=== PATIENT | female | born 1955 | race Caucasian/White ===

== ENCOUNTER 2021-02-27 09:11 | Outpatient (REF) | payer OTHER, SELFPAY ==
--- NOTE | ~2021-02-27 | CT_ITS ---
EXAMINATION: CT ABDOMEN WITHOUT CONTRAST CLINICAL INFORMATION: S30.1XXA - Contusion of abdominal wall, initial encounter COMPARISON: Radiographs chest and right ribs 02/27/2021 TECHNIQUE: Contiguous axial thin section helical images of the abdomen were performed without contrast. The data set was reformatted in the coronal and sagittal planes and reviewed on an independent workstation. This CT examination was performed using dose optimization techniques as appropriate, variously including the following: *Automated exposure control *Adjustment of mA and/or kV according to patient size (this includes techniques or standardized protocols for targeted exams where dose is matched to indication/reason for exam; i.e. extremities or head) *Use of iterative reconstruction technique DLP: 249 mGy-cm FINDINGS: LUNG BASES: Lung bases are clear. No airspace consolidation or effusion. Heart size normal. No pericardial effusion. LIVER, GALLBLADDER, AND BILIARY TREE: Liver is normal in size and smooth in contour and uniform in attenuation. No focal hepatic parenchymal lesion or intrahepatic ductal dilatation. The gallbladder is unremarkable with no evidence of radiopaque gallstones, gallbladder wall thickening, or obvious pericholecystic inflammatory changes. PANCREAS: Unremarkable. SPLEEN: Unremarkable. ADRENAL GLANDS: Unremarkable. KIDNEYS AND URETERS: The kidneys are normal in size and contour and attenuation. There is no hydronephrosis, hydroureter, or perinephric stranding. There are bilateral solitary small nonobstructing calculi upper poles, under 3 mm on left and under 2 mm on right. GASTROINTESTINAL TRACT: There is borderline small sliding hiatal hernia. There is no bowel obstruction or focal inflammatory changes in the bowel or mesentery. No ascites or fluid collection. ABDOMINAL WALL: There is a small focal subcutaneous hematoma right lateral abdomen approximately 6 cm superior to the iliac crest and measuring 2.3 x 2.4 cm x 2.0 cm. There is 65 HU attenuation. No subcutaneous emphysema. There is mild surrounding stranding in the subcutaneous space and mild thickening of the overlying skin and mild thickening of the superficial fascia deep to the hematoma. The abdominal wall musculature shows no hematoma or defect. No abdominal wall hernia. LYMPH NODES: No lymphadenopathy. VASCULAR: Unremarkable. OSSEUS STRUCTURES: No acute bony abnormality. There are multilevel degenerative disc changes lower thoracic and lumbar spine. Old right rib fractures are partially imaged, also noted on today's radiographs. CT/CT abdomen wo con IMPRESSION: 1. Right lateral abdominal wall subcutaneous hematoma measuring 2.4 cm. No intramuscular abdominal wall hematoma or abdominal wall defect. 2. No acute intra-abdominal abnormality.
--- NOTE | ~2021-02-27 | XR_ITS ---
EXAMINATION: XR RIBS, RIGHT CLINICAL INFORMATION: Contusion of unspecified bronchus wall of the thorax COMPARISON: None TECHNIQUE: 3 views of the right ribs and one view of the chest were obtained. FINDINGS: The cardiac and mediastinal contours are normal. The lungs are clear. There is no pleural effusion or pneumothorax. There are degenerative changes of the spine. There is a right shoulder replacement. There are old posterior sixth 7 and 8 rib fractures no acute rib fracture is seen. XR/XR ribs RT min 3V w CXR1V IMPRESSION: No evidence for acute disease in the chest. Old right rib fractures. No acute rib fracture is seen.
== END 2021-02-27 09:12 | disposition home or self-care (01) ==
LOC: HO.HMGCX 09:11
PROVIDERS: Visit Provider Internal Medicine
DX: S30.1XXA Contusion of abdominal wall, initial encounter (principal); S20.219A Contusion of unspecified front wall of thorax, initial encounter; X58.XXXA Exposure to other specified factors, initial encounter; Y93.9 Activity, unspecified; Y92.9 Unspecified place or not applicable; Y99.9 Unspecified external cause status
CPT/HCPCS: 71101; 74150

== ENCOUNTER 2023-09-30 12:04 | Outpatient (REF) | payer MEDICARE, SELFPAY ==
[2023-09-30 12:37] LABS: MANUAL DIFF FLAG NO
[2023-09-30 13:51] LABS: Basophils Absolute Auto 0.1 X10*3/uL (0.0-0.2); Basophils Percent Auto 0.9 % (0-2); Eosinophils Absolute Auto 0.3 X10*3/uL (0.0-0.4); Eosinophils Percent Auto 4.3 % (0-4); Hematocrit 40.7 % (37.0-47.0); Hemoglobin 14.1 g/dl (12.0-16.0); Imm Gran Abs Auto 0.01 X10*3/uL (0.00-0.03); Imm Gran Pct Auto 0.2 % (0.0-0.4); Lymphocytes Absolute Auto 2.3 X10*3/uL (1.2-4.9); Lymphocytes Percent Auto 34.7 % (20-40); Mean Corpuscular HGB Conc 34.6 g/dl (31.0-35.0); Mean Corpuscular Hemoglobin 29.7 pg (27.0-33.0); Mean Corpuscular Volume 85.7 fL (80.0-98.0); Mean Platelet Volume 10.4 fL (9.4-12.3); Monocytes Absolute Auto 0.4 X10*3/uL (0.1-1.2); Monocytes Percent Auto 5.9 % (2-11); Neutrophils Absolute Auto 3.5 x10*3/uL (2.0-8.3); Platelet Count 270 X10*3/uL (160-400); Red Blood Count 4.75 X10*6/uL (4.20-5.50); Red Cell Distribution Width 12.7 % (11.0-16.0); White Blood Count 6.5 X10*3/uL (4.8-10.8)
[2023-09-30 14:22] LABS: Anion Gap 14 (12-20); Blood Urea Nitrogen 10 mg/dL (9-16); Calcium 9.5 mg/dL (8.4-10.2); Carbon Dioxide 26 mmol/L (22-29); Chloride 106 mmol/L (96-108); Estimated Glomerular Filt Rate > 60; Glucose Random 85 mg/dL (60-115); Potassium 3.5 mmol/L (3.3-5.1); Sodium 142 mmol/L (135-145)
[2023-09-30 14:40] LABS: T4 Thyroxine 6.6 ug/dL (4.5-12.0); Thyroid Stimulating Hormone 1.74 uIU/mL (0.32-4.0)
[2023-09-30 14:45] LABS: Vitamin B12 329 pg/mL (200-900)
[2023-10-04 14:47] LABS: Vitamin D 25-OH, D2 <4 ng/mL; Vitamin D 25-OH, D3 39 ng/mL; Vitamin D 25-OH, Total 39 ng/mL (30-100)
== END 2023-09-30 12:05 | disposition home or self-care (01) ==
LOC: HO.LAB 12:04
PROVIDERS: Visit Provider Psychiatry & Neurology Neurology
DX: G31.84 Mild cognitive impairment of uncertain or unknown etiology (principal)
CPT/HCPCS: 36415; 80048; 82306; 82607; 84436; 84443; 85025

== ENCOUNTER 2023-11-03 07:46 | Outpatient (REF) | payer MEDICARE, SELFPAY ==
--- NOTE | 2023-11-03 07:49 | EEG_ITS ---
FINDINGS: Waking background activity consists of a moderate voltage 9 to 10 hertz, posterior alpha frequency that is seen symmetrically and attenuates well with eye opening, while low voltage fast frequencies predominant anteriorly. Photic stimulation and hyperventilation are without activation. No sleep stages are identified. No focal, lateralizing, or paroxysmal discharges are seen. IMPRESSION: This waking EEG is within normal limits. MD RADHA Flowers/JESS / [id number]
== END 2023-11-03 07:47 | disposition home or self-care (01) ==
LOC: HO.NEURO 07:46
PROVIDERS: PCP Internal Medicine; Visit Provider Psychiatry & Neurology Neurology
DX: G31.84 Mild cognitive impairment of uncertain or unknown etiology (principal)
CPT/HCPCS: 95816

== ENCOUNTER 2023-11-26 12:39 | Outpatient (REF) | payer MEDICARE, SELFPAY ==
--- NOTE | ~2023-11-26 | MR_ITS ---
EXAMINATION: MR BRAIN WITHOUT CONTRAST CLINICAL INFORMATION: Mild cognitive impairment. COMPARISON: None available. TECHNIQUE: MRI of the brain was obtained using routine sequences without contrast. FINDINGS: No focal restricted diffusion is demonstrated to suggest acute or subacute cerebral ischemia. No evidence of acute or chronic hemorrhagic products on heme-sensitive imaging. Small region chronic encephalomalacia in the left superior frontal gyrus. Scattered periventricular and deep white matter T2 FLAIR hyperintensities consistent with mild underlying microangiopathy. Proportional prominence of the ventricles and sulcal spaces without evidence of obstructive hydrocephalus. No abnormal mass effect. No midline shift. Normal appearance of the pituitary gland. Normal positioning of the cerebellar tonsils. Normal arterial and venous vascular flow voids are present. Normal, homogeneous marrow signal. Mild mucosal thickening of the paranasal sinuses. Minimal leftward nasal septal deviation No signal abnormalities within the mastoids. MR/MR head/brain wo con IMPRESSION: 1. No acute intracranial abnormalities. 2. Small region chronic encephalomalacia in the left superior frontal gyrus. Mild underlying microangiopathy and generalized cerebral volume loss.
== END 2023-11-26 12:40 | disposition home or self-care (01) ==
LOC: HO.MRI 12:39
PROVIDERS: PCP Internal Medicine; Visit Provider Psychiatry & Neurology Neurology
DX: G31.84 Mild cognitive impairment of uncertain or unknown etiology (principal)
CPT/HCPCS: 70551

== ENCOUNTER 2025-05-23 13:19 | Outpatient (AMB) | payer MEDICARE, MEDICAID, SELFPAY ==
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
--- OUTSIDE RECORDS SUMMARY | 2025-05-23 14:28 | XMS_ITS | Patient Health Record ---
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 Role Phone Jade Montes Primary Care Provider Rosana vailable Black, Stacey Unavailable [phone] Allergies Allergen (clinical drug ingredient) Drug/Non Drug Allergy documented on EMR Reaction Allergy Type Onset Date Status angiotensin-converting enzyme inhibitor (FN) ASHLY Inhibitors Unknown Drug Allergy Acti ve codeine Codeine Unknown Drug Allergy Active Reason For Referral No Information Medications Medication SIG (Take, Route, Frequency, Duration) Notes Start Date End Date Status buPROPion HCl ER (SR) 150 MG 1 tablet Or ally Twice a day Active Desonide 0.05 % Externally once daily Active Omeprazole 40 MG Orally twice a day Active Clobetasol Propionate 1 application to affected area Twice a day Not-Taking hydroCHLOROthiazide 12.5 MG Orally Once a day Active Naproxen 250 MG 1 tablet Orally Twice a day Active Atorvastatin Calcium 10 MG Orally Active Ciclopirox Olamine 0.77 % 1 application to affected area Externally Twice a day; Duration: 14 Active Lipitor 10 MG 1 tablet Orally Once a day; Duration: 30 day(s) Not-Taking LamISIL 250 MG 1 tablet Orally Once a day for 7 days then stop for 3 weeks repeat every month; Duration: 90 days 02/28/2019 Not-Taking amLODIPine Besylate 10 MG 1 tablet Orall y Once a day Active Cholecalciferol 2000 UNIT 1 capsule Oral ly Once a day; Duration: 30 day(s) Unknown Pravastatin Sodium 40 MG 1 tablet Orally Once a day Unknown Econazole Nitrate 1 % APPLY TO AFFECTED AREA EVERY DAY; Duration: 30 Unknown Immunizations Vaccine Route Administration Date Status Comme nts Influenza Unknown 04/16/2018 Administered Influenza Unknown 02/09/2019 Administered Influenza Unknown 01/31/2020 Administered COVID-19 Pfizer BioNTech Vaccine Unknown 08/09/2020 Administered Second Dose: Social History Tobacco Use: Social History Observation Description Date Details (start date - stop date) Former Smoker NA - NA Tobacco Use/Smoking Question Answer Notes Are you a: former smoker When did you stop smoking? 2009 Additional Findings: Tobacco User Modera te cigarette smoker (10-19 cigs/day) Additional Findings: Tobacco Non-User Current no n-smoker Alcohol Screen Question Answer Notes Did you have a drink contain ing alcohol in the past year? Yes How often did you have a dri nk containing alcohol in the past year? 2 to 4 times a month (2 points) How many drinks did you have on a typical day when you were drinking in the past year? 1 or 2 drinks (0 point) How often did you have 6 or more drinks on one occasion in the past year? Never (0 point) Points 2 Interpretation Negative Tobacco use other than smoking: Question Answer Notes Are you an other tobacco user? No Problems Problem Type SNOMED Code ICD Code Onset Dates Problem Status W/U Status Risk Notes Problem Acquired hammer toe of right foot (3902401954258024 ) Other hammer toe(s) (acquired), right foot (M20.41) Active confirmed Problem Tinea unguium (915950415) Tinea unguium (B35.1) Active confirmed Problem Acquired hammer toe of left foot (1760296491590294 ) Other hammer toe(s) (acquired), left foot (M20.42) Active confirmed Problem Polyneuropathy due to type 2 diabetes mellitus (842844518) Type 2 diabetes mellitus with diabetic polyneuropathy (E11.42) Active confirmed Problem Type II diabetes mellitus without complication (382729853) Type 2 diabetes mellitus without complications (E11.9) Active confirmed Plan Of Treatment Pending Test Test Name Order Date *Liver Function Test (LFT) 02/25/2019 [id number] NAIL, 6 OR MORE 02/25/2019 [id number] NAIL, 6 OR MORE 06/02/2019 [id number] NAIL, 6 OR MORE 09/22/2019 [id number] NAIL, 6 OR MORE 01/05/2020 [id number] NAIL, 6 OR MORE 07/09/2020 [id number] Plate 01/15/2015 [id number] Plate 04/18/2015 [id number] Plate 08/02/2015 [id number] Plate Each Additional [id number] SKIN LESIONS, 2 TO 4 01/08/20 21 Insurance Providers Payer Name Payer Address Payer Phone Subscriber Number Group Number Insured Name Patient Relationship to Insured Coverage Start Date Coverage End Date [place] [address] [place] [phone] [id number] Tierney Blair Self - patient is the insured Medical (General) History Medical History History ICD Code Abnormal glucose Allergic rhinitis Anemia Barretts esophagus COPD Depression Dyshidrosis Eczema Hemorrhoids Hiatal hernia Hyperlipidemia Hypertension Lumbar radiculopathy Metrorrhagia Murmur, heart Post concussion syndrome Reflux Tublar adenoma Back,Hip,and Knee pain Neuropathy Measles Mumps Chicken pox Joint implants/screws Cancer - skin Pulmonary Nodules tubular adenoma Onychomycosis type II diabetes Internal Hemorrhoids Anxiety Arthritis Broken bones Surgical History Surgery Date(Month/Year) colonoscopy 2012 back surgery 2014 wrist surgery 2009 shoulder replacement,total 10/12/2018 breast biopsy tonsillectomy and adenoidectomy spinal stenosis surgery 2014?
--- OUTSIDE RECORDS SUMMARY | 2025-05-23 14:28 | XMS_ITS ---
Author Name [facility] Organization Unknown Care Team Organization Name Specialty Phone Email Start Date End Da te [facility] Jade Tijerina Primary [facility] 04/08/2022 01/18/2024
== END 2025-05-23 13:50 | disposition home or self-care (01) ==
LOC: HO.HSM 13:19
PROVIDERS: PCP Internal Medicine; Visit Provider Psychiatry & Neurology Neurology
DX: G31.84 Mild cognitive impairment of uncertain or unknown etiology (principal); I67.89 Other cerebrovascular disease; S06.9XAA Unspecified intracranial injury with loss of consciousness status unknown, initial encounter
CPT/HCPCS: 99205

== ENCOUNTER → 2025-05-23 13:19 | Outpatient (BNVA) | payer MEDICARE, MEDICAID, SELFPAY | PROVIDERS: PCP Internal Medicine; Visit Provider Psychiatry & Neurology Neurology | DX: G31.84 Mild cognitive impairment of uncertain or unknown etiology (principal) | CPT/HCPCS: 99202 ==